=== PATIENT | female | born 1990 | race Caucasian/White ===

== ENCOUNTER 2017-04-06 13:02 | Emergency (ER) | payer OTHER ==
[~2017-04-06] VITALS: Ht 162.6 cm; Wt 140.6 kg
[2017-04-06] MEDS ORDERED: LEVOTHYROXINE0.05 MG PO (13:18)
[2017-04-06 13:47] LABS: ABSOLUTE NEUTROPHILS 6.9 thou/uL (1.4-8.2); EOSINOPHILS 3.4 % (0.0-3.0); HEMATOCRIT 41.2 % (37.0-47.0); HEMOGLOBIN 14.1 gm/dL (12.0-15.0); LYMPHOCYTES 28.9 % (24.0-44.0); MANUAL DIFF NO; MCH 29.6 pg (26.0-34.0); MCHC 34.2 g/dL (28.0-37.0); MCV 86.4 fL (80.0-100.0); MONOCYTES 9.2 % (1.0-8.0); PLATELET COUNT 403 thou/uL (150-400); POLYS 57.5 % (36.0-66.0); RBC 4.77 mil/uL (4.20-5.00); RDW 12.9 % (10.5-14.5); WBC 12.1 thou/uL (4.0-11.0)
[2017-04-06 13:59] LABS: CALCIUM 8.8 mg/dL (8.5-10.1); POTASSIUM 3.8 mmol/L (3.5-5.1)
[2017-04-06 14:04] LABS: ALBUMIN 3.5 g/dL (3.4-5.0); TOTAL BILIRUBIN 0.2 mg/dL (<0.1-1.0); TOTAL PROTEIN 8.1 g/dL (6.4-8.2)
[2017-04-06 14:10] LABS: URINE BLOOD 3+ (Negative); URINE COLOR RED; URINE GLUCOSE-RANDOM* NEGATIVE (Negative); URINE KETONES NEGATIVE (Negative); URINE NITRITE NEGATIVE (Negative); URINE PROTEIN (DIPSTICK) 2+ (Negative); URINE SPECIFIC GRAVITY >= 1.030 (1.003-1.035)
[2017-04-06 14:12] LABS: URINE BILIRUBIN NEGATIVE (Negative)
[2017-04-06 14:14] LABS: BACTERIA 1-9 Few /HPF (None Seen); SQUAMOUS 0-3 Few /LPF (0-3); URINE RBC >20 Many /HPF (0-2); URINE WBC 0-5 Rare /HPF (0-5)
[2017-04-06 14:15] LABS: CASTS None Seen /LPF (None Seen); CRYSTALS None Seen /LPF (None Seen)
[2017-04-06] MEDS ORDERED: TORADOL 10 MG T10 MG PO (14:41)
[2017-04-06 15:05] VITALS: BP 136/61
[2017-04-09 16:12] LABS: CHLAMYDIA TRACHOMATIS-PCR Negative (Negative); NEISSERIA GONORRHEA-PCR Negative (Negative)
== END 2017-04-06 15:12 | disposition home or self-care (01) ==
LOC: ER 13:02
PROVIDERS: Physician Assistant
DX: N93.8 Other specified abnormal uterine and vaginal bleeding (principal); N83.201 Unspecified ovarian cyst, right side; F17.210 Nicotine dependence, cigarettes, uncomplicated

== ENCOUNTER 2017-07-22 18:21 | Emergency (ER) | payer OTHER ==
[~2017-07-22] VITALS: Ht 160 cm; Wt 127.0 kg
[~2017-07-22 18:21] MED LIST: BLISOVI FE 1.51 EACH PO; IBUPROFEN 800800 M1 PO; PREDNISONE 20 M20 MG PO; SYNTHROID75 MCG PO; TORADOL 10 MG T10 MG PO
[2017-07-22] MEDS ORDERED: HYDROCODONE-AP1 EAC6 PO (19:28)
[2017-07-22 19:48] VITALS: BP 150/88
== END 2017-07-22 19:50 | disposition home or self-care (01) ==
LOC: ER 18:21
DX: S93.402A Sprain of unspecified ligament of left ankle, initial encounter (principal); M25.571 Pain in right ankle and joints of right foot; F17.210 Nicotine dependence, cigarettes, uncomplicated; W19.XXXA Unspecified fall, initial encounter; Y93.89 Activity, other specified; Y92.89 Other specified places as the place of occurrence of the external cause; Y99.8 Other external cause status

== ENCOUNTER 2018-07-17 21:11 | Emergency (ER) | payer OTHER ==
[~2018-07-17] VITALS: Ht 162.6 cm; Wt 142.9 kg
[~2018-07-17 21:11] MED LIST changes: +HYDROCODONE-AP1 EAC6 PO
[2018-07-17] MEDS ORDERED: SYNTHROID112 MC1 PO (21:18)
[2018-07-17] MEDS ORDERED: XANAX1 MG PO (21:19)
[2018-07-17] MEDS ORDERED: PHENTERMINE H37.5 MG PO (21:19)
[2018-07-17 21:59] LABS: URINE BILIRUBIN NEGATIVE (Negative); URINE BLOOD 1+ (Negative); URINE CLARITY CLEAR; URINE COLOR YELLOW; URINE GLUCOSE-RANDOM* NEGATIVE (Negative); URINE KETONES NEGATIVE (Negative); URINE NITRITE-REFLEX NEGATIVE (Negative); URINE PROTEIN (DIPSTICK) NEGATIVE (Negative); URINE SPECIFIC GRAVITY 1.025 (1.005-1.035); URINE UROBILINOGEN 0.2 E.U./dl (0.2-1.0)
[2018-07-17 22:00] LABS: URINE LEUKOCYTES-REFLEX 2+ (Negative)
[2018-07-17 22:14] LABS: CASTS None Seen /LPF (None Seen); CRYSTALS None Seen /LPF (None Seen); SQUAMOUS 4-10 Moderate /LPF (0-3)
[2018-07-17 22:15] LABS: URINE RBC 0-2 Rare /HPF (0-2); URINE WBC-REFLEX 6-15 Few /HPF (0-5)
[2018-07-17 22:16] LABS: BACTERIA-REFLEX 1-9 Few /HPF (None Seen)
[2018-07-17 22:57] LABS: ABSOLUTE NEUTROPHILS 12.8 thou/uL (1.4-8.2); BASOPHILS 0.8 % (0.0-2.0); HEMATOCRIT 40.1 % (37.0-47.0); HEMOGLOBIN 13.8 gm/dL (12.0-15.0); LYMPHOCYTES 19.4 % (24.0-44.0); MCH 29.7 pg (26.0-34.0); MCHC 34.4 g/dL (28.0-37.0); MCV 86.4 fL (80.0-100.0); PLATELET COUNT 392 thou/uL (150-400); POLYS 71.8 % (36.0-66.0); RBC 4.64 mil/uL (4.20-5.00); RDW 13.3 % (10.5-14.5); WBC 17.8 thou/uL (4.0-11.0)
[2018-07-17 23:06] LABS: CALCIUM 9.3 mg/dL (8.5-10.1); POTASSIUM 3.9 mmol/L (3.5-5.1)
[2018-07-17 23:12] LABS: ALBUMIN 3.4 g/dL (3.4-5.0); TOTAL BILIRUBIN 0.2 mg/dL (<0.1-1.0); TOTAL PROTEIN 8.1 g/dL (6.4-8.2)
[2018-07-18 00:25] LABS: URINE BILIRUBIN NEGATIVE (Negative); URINE BLOOD TRACE (Negative); URINE CLARITY CLEAR; URINE COLOR YELLOW; URINE GLUCOSE-RANDOM* NEGATIVE (Negative); URINE KETONES NEGATIVE (Negative); URINE LEUKOCYTES-REFLEX NEGATIVE (Negative); URINE NITRITE-REFLEX NEGATIVE (Negative); URINE PROTEIN (DIPSTICK) NEGATIVE (Negative); URINE SPECIFIC GRAVITY <= 1.005 (1.005-1.035); URINE UROBILINOGEN 0.2 E.U./dl (0.2-1.0)
[2018-07-18] MEDS ORDERED: BENTYL 10 MG CA10 M1 PO (01:31)
[2018-07-18] MEDS ORDERED: ZOFRAN ODT4 MG PO (01:31)
[2018-07-18] MEDS ORDERED: FLAGYL500 MG PO (01:31)
[2018-07-18 02:00] VITALS: BP 113/77
== END 2018-07-18 02:02 | disposition home or self-care (01) ==
LOC: ER 21:11
PROVIDERS: Physician Assistant
DX: N83.201 Unspecified ovarian cyst, right side (principal); N76.0 Acute vaginitis; B96.89 Other specified bacterial agents as the cause of diseases classified elsewhere; F17.210 Nicotine dependence, cigarettes, uncomplicated